=== PATIENT | male | born 1955 | race Caucasian/White ===

== ENCOUNTER 2020-04-11 12:22 | Emergency (ER) | payer MEDICAID ==
[~2020-04-11] VITALS: Ht 177.8 cm; Wt 89.8 kg
--- NOTE | 2020-04-11 12:22 | NUR ---
PT BIBRA 61 OUTSIDE APARTMENT COMPLEX WANDERING AND CONFUSED. 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 WILL CONTINUE TO MONITOR.
--- NOTE | 2020-04-11 12:26 | NUR ---
PT SEEN AND EXAMINED BY .
--- NOTE | 2020-04-11 12:30 | NUR ---
URINE SPECIMEN COLLECTED AND SENT TO LAB.
--- NOTE | 2020-04-11 12:35 | NUR ---
ER PHLEB AT BEDSIDE FOR BLOOD DRAW.
[2020-04-11 12:46] LABS: BASOPHILS # (AUTO) 0.1 /CMM (0.0-0.2); BASOPHILS % (AUTO) 0.7 % (0.0-2.0); EOSINOPHILS % (AUTO) 0.4 % (0.0-6.0); HEMATOCRIT 45 % (39-51); LYMPHOCYTES # (AUTO) 1.6 /CMM (0.8-4.8); LYMPHOCYTES % (AUTO) 19.5 % (20.0-44.0); MEAN CORPUSCULAR HGB CONC 34 g/dl (31.0-36.0); MEAN CORPUSCULAR VOLUME 89 fL (80-96); MONOCYTES # (AUTO) 0.7 /CMM (0.1-1.30); MONOCYTES % (AUTO) 8.5 % (2.0-12.0); NEUTROPHILS # (AUTO) 5.7 /CMM (1.8-8.9); NEUTROPHILS % (AUTO) 70.9 % (43.0-81.0); PLATELET COUNT (AUTO) 234 /CMM (150-450); RED BLOOD CELL COUNT(AUTO) 5.01 MIL/uL (4.5-6.0); WHITE BLOOD COUNT (AUTO) 8.1 K/uL (4.3-11.0)
[2020-04-11 12:48] LABS: APPEARANCE,URINE Clear (CLEAR); BILIRUBIN,URINE Negative (NEGATIVE); BLOOD, URINE Trace-intact Ery/uL (NEGATIVE); COLOR,URINE Yellow (YELLOW); KETONES,URINE Trace (NEGATIVE); LEUKOCYTE ESTERASE ,URINE Negative (NEGATIVE); NITRITE, URINE Negative (NEGATIVE); PROTEIN,URINE 30 mg/dl (NEGATIVE); UGLUCOSE Negative (NEGATIVE); UROBILINOGEN,URINE 0.2 EU/dL (0.2)
[2020-04-11 12:49] LABS: BACTERIA,URINE Rare /HPF (None Seen); RBC,URINE 0-2 /HPF (0-2); SQUAMOUS EPITHELIAL CELL,UR Few /HPF (None Seen); WBC,URINE 0-2 /HPF (0-3)
[2020-04-11 12:53] LABS: CALCIUM, SERUM 9.6 mg/dL (8.5-10.1); CARBON DIOXIDE 26 mmol/L (21-32); CHLORIDE 98 mmol/L (98-107); GLUCOSE 98 mg/dL (74-106); POTASSIUM 3.9 mmol/L (3.5-5.1); SODIUM SERUM 135 mmol/L (136-145); UREA NITROGEN, BLOOD 18 mg/dL (7-18)
[2020-04-11 12:59] LABS: ACETAMINOPHEN 0 ug/ml (10-30); ALANINE AMINOTRANSFERASE 21 U/L (12-78); ALBUMIN 4.4 g/dL (3.4-5.0); ALCOHOL, BLOOD < 3 mg/dL (0-0); ALKALINE PHOSPHATASE 111 U/L (46-116); ASPARTATE AMINOTRANSFERASE 28 U/L (15-37); BILIRUBIN,DIRECT 0.2 mg/dL (0.0-0.2); BILIRUBIN,TOTAL 0.9 mg/dL (0.2-1.0); SALICYLATE 0.3 mg/dL (2.8-20.0); TOTAL PROTEIN, SERUM 7.6 g/dL (6.4-8.2)
[2020-04-11 13:23] LABS: SERUM AMMONIA 19 umol/L (11-32)
[2020-04-11 13:35] LABS: THYROID STIMULATING HORMONE 1.391 uIU/mL (0.358-3.74)
--- NOTE | 2020-04-11 13:50 | NUR ---
Patient discharged to home in stable condition. Written and verbal after care instructions given. Patient verbalizes understanding of instruction.
[2020-04-11 13:51] VITALS: BP 131/77
== END 2020-04-11 13:52 | disposition home or self-care (01) ==
LOC: ER 12:24
DX: T43.621A Poisoning by amphetamines, accidental (unintentional), initial encounter (principal); T40.1X1A Poisoning by heroin, accidental (unintentional), initial encounter; I10 Essential (primary) hypertension; J44.9 Chronic obstructive pulmonary disease, unspecified; F32.9 Major depressive disorder, single episode, unspecified; G47.00 Insomnia, unspecified; Y92.89 Other specified places as the place of occurrence of the external cause
CPT/HCPCS: 36415; 70450; 71045; 80048; 80076; 80305; 80307; 80329; 81001; 82140; 82962; 84443; 85025; 93005; 99285; G0480; 81000-TC

== ENCOUNTER 2022-07-07 20:27 | Emergency (ER) | payer OTHER ==
[~2022-07-07] VITALS: Ht 182.9 cm; Wt 86.6 kg
--- NOTE | 2022-07-07 20:29 | NUR ---
PT BIBRA FOR C/O ALOC FOUND IN A [place] PARKING LOT. PER EMS REPORT, PT WAS AWAKE UPON THEIR ARRIVAL AND BECAME UNRESPONSIVE EN ROUTE AXO x0 UNRESPONSIVE TO VERBAL OR PAINFUL STIMULI. PT HAS HX OF BRAIN CANCER W METS TAKES SABOXONE AND WAS FOUND ON HIS PERSON ON EMS ARRIVAL. PT COOL PALE AND DIAPHORETIC EKG READS SINUS CHRIS AND SBP IN 70S IN 500NS GIVEN EN ROUTE. PT PLACED IN ER BED 9 CHANGED TO GOWN AND PLACED ON GALLERY MANAGER AND PULSE OX. O2 SAT 80S ON RA PLACED ON NRB 15LPM. WAS AT BEDSIDE FOR EVAL.
--- NOTE | 2022-07-07 20:30 | NUR ---
IV CANNULA G20 INSERTED ON LEFT AC. BLOOD DRAWN AND SENT TO LAB.
[2022-07-07] MEDS ORDERED: NALOXONE PREFILLED SYRINGE 2 MG/2 ML SYRINGE ONE (20:33)
--- NOTE | 2022-07-07 20:40 | NUR ---
PATIENT IS UNTESTED FOR SWALLOWING EVAL. PATIENT IS UNRESPONSIVE TO VERBAL AND NON VERBAL STIMULI. AAOX1. CAME WITH IV LINE ON RIGHT AC G18. WITH NON REBREATHING BAG AT 15LPM SATS AT 96%
--- NOTE | 2022-07-07 20:42 | NUR ---
URINE SPECIMEN SENT TO LAB
--- NOTE | 2022-07-07 20:50 | NUR ---
PT RESPONDED TO NARCAN WELL CURRENTLY AWAKE AND ALERT X4. OXYGEN TITRATED TO 4LPM NC AND TOLERATING WELL.
[2022-07-07] MEDS ORDERED: IV NS 0.9% 1,000 ML BAG IV ONE (21:00)
[2022-07-07] MEDS ORDERED: NALOXONE HCL 0.4 MG/ML AMPUL IV ONE (21:00)
--- NOTE | 2022-07-07 21:07 | NUR ---
PT PASSED SWALLOW RE-EVALUATION
[2022-07-07 21:10] LABS: BASOPHILS % (AUTO) 0.6 % (0.0-2.0); EOSINOPHILS % (AUTO) 1.7 % (0.0-6.0); HEMATOCRIT 39 % (39-51); HEMOGLOBIN 13.1 g/dL (13.5-17.5); LYMPHOCYTES # (AUTO) 2.1 K/uL (0.8-4.8); MEAN CORPUSCULAR HGB CONC 34 g/dl (31.0-36.0); MEAN CORPUSCULAR VOLUME 86 fL (80-96); MONOCYTES # (AUTO) 0.6 K/uL (0.1-1.30); MONOCYTES % (AUTO) 7.6 % (2.0-12.0); NEUTROPHILS # (AUTO) 4.9 K/uL (1.8-8.9); NEUTROPHILS % (AUTO) 63.1 % (43.0-81.0); PLATELET COUNT (AUTO) 330 K/uL (150-450); RED BLOOD CELL COUNT(AUTO) 4.54 MIL/uL (4.5-6.0); WHITE BLOOD COUNT (AUTO) 7.8 K/uL (4.3-11.0)
[2022-07-07] MEDS ORDERED: ONDANSETRON HCL/PF 4 MG/2 ML VIAL ONE (21:15)
[2022-07-07] MEDS ORDERED: ONDANSETRON HCL/PF 4 MG/2 ML VIAL IVP ONE (21:30)
[2022-07-07 21:31] LABS: BILIRUBIN,URINE SMALL (NEGATIVE); COLOR,URINE YELLOW (YELLOW); LEUKOCYTE ESTERASE ,URINE NEGATIVE (NEGATIVE); NITRITE, URINE NEGATIVE (NEGATIVE); PROTEIN,URINE 100 mg/dl (NEGATIVE); UGLUCOSE NEGATIVE (NEGATIVE)
[2022-07-07 21:34] LABS: SERUM AMMONIA 31 umol/L (11-32)
--- NOTE | 2022-07-07 21:39 | NUR ---
PT BEING TRANSPORTED TO [facility]IA [facility]
--- NOTE | 2022-07-07 21:41 | NUR ---
PT COVID POSITIVE.MD MADE AWARE AND TRANSFERRED TO PRIVATE ROOM.
[2022-07-07] MEDS ORDERED: IBUPROFEN 600 MG TABLET ONE (21:51)
[2022-07-07] MEDS ORDERED: IBUPROFEN 600 MG TABLET PO ONE (22:00)
[2022-07-07 22:02] LABS: BACTERIA,URINE RARE /HPF (None Seen); MUCUS,URINE Few /LPF (None Seen); RBC,URINE 0-2 /HPF (0-2); SQUAMOUS EPITHELIAL CELL,UR 0-2 /HPF (None Seen); WBC,URINE 0-2 /HPF (0-3)
[2022-07-07 22:22] LABS: CALCIUM, SERUM 8.7 mg/dL (8.5-10.1); CARBON DIOXIDE 29 mmol/L (21-32); CHLORIDE 99 mmol/L (98-107); CREATININE 1.1 mg/dL (0.6-1.3); GLUCOSE 128 mg/dL (74-106); POTASSIUM 2.9 mmol/L (3.5-5.1); SODIUM SERUM 138 mmol/L (136-145); UREA NITROGEN, BLOOD 10 mg/dL (7-18)
[2022-07-07] MEDS ORDERED: PIPERACILLIN /TAZOBACTAM 3.375 G VIAL IV ONE (22:22)
[2022-07-07 22:28] LABS: ACETAMINOPHEN 0 ug/ml (10-30); ALANINE AMINOTRANSFERASE 18 U/L (12-78); ALBUMIN 3.4 g/dL (3.4-5.0); ALCOHOL, BLOOD < 3 mg/dL (0-0); ALKALINE PHOSPHATASE 68 U/L (46-116); ASPARTATE AMINOTRANSFERASE 24 U/L (15-37); BILIRUBIN,DIRECT 0.2 mg/dL (0.0-0.2); BILIRUBIN,TOTAL 0.5 mg/dL (0.2-1.0); TOTAL PROTEIN, SERUM 6.1 g/dL (6.4-8.2)
[2022-07-07] MEDS ORDERED: PIPERACILLIN /TAZOBACTAM 3.375 G in IV D5W 50 ML IV ONE (22:30)
[2022-07-07 23:03] LABS: THYROID STIMULATING HORMONE 1.409 uIU/mL (0.358-3.74)
--- NOTE | 2022-07-08 01:12 | NUR ---
FAXED UPDATED CLINICALS TO [facility]
--- NOTE | 2022-07-08 02:03 | NUR ---
PT ACCEPTED AT [facility] UNDER THE CARE OF DR. YOUNGER. PT IS GOING TO ER. TRANSPORT TO [facility] BY [facility]
--- NOTE | 2022-07-08 02:45 | NUR ---
REPORT GIVEN TO [facility] [place]
--- NOTE | 2022-07-08 02:49 | NUR ---
[facility] ETA per Niranjan: [id number]
--- NOTE | 2022-07-08 03:01 | NUR ---
[facility] AT BED SIDE TO SHIFT SUPERVISOR THE PT
[2022-07-08 03:04] VITALS: BP 132/80
--- NOTE | 2022-07-08 03:13 | NUR ---
PT WAS TRANSFERRED TO [facility] UNDER ACLS
--- NOTE | 2022-07-08 03:13 | NUR ---
PT PICKED UP BY [facility] for transfer to [facility]
== END 2022-07-08 03:24 | disposition short-term general hospital (02) ==
LOC: ER 20:27
DX: G93.40 Encephalopathy, unspecified (principal); J69.0 Pneumonitis due to inhalation of food and vomit; U07.1 COVID-19; J44.9 Chronic obstructive pulmonary disease, unspecified; I10 Essential (primary) hypertension; F11.10 Opioid abuse, uncomplicated; Z86.03 Personal history of neoplasm of uncertain behavior
CPT/HCPCS: 99285; 96374; 96375; 93005; 71045; 72125; 70450; 82140; 85025; 80048; 87077; 87040 ×2; 83605 ×2; 80076; 81001; 36415; 84443; 84484; 85730; 87081; 82962; 87426; 80143; 80320; 80307; J2405; J2543; J7060; J7030; J2310; C9803; G0480

== ENCOUNTER 2022-08-10 15:42 | Emergency (ER) | payer OTHER ==
[~2022-08-10] VITALS: Ht 175.3 cm; Wt 73.0 kg
--- NOTE | 2022-08-10 15:50 | NUR ---
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 TO ER BED 4.
--- NOTE | 2022-08-10 16:20 | NUR ---
DR SHELDON AT BEDSIDE W/ PT FOR EVAL
--- NOTE | 2022-08-10 17:28 | NUR ---
PHLEB AT BEDSIDE FOR BLOOD DRAW
[2022-08-10] MEDS ORDERED: IV NS 0.9% 1,000 ML IV ONE ×3 (17:30→23:00)
[2022-08-10 17:57] LABS: BASOPHILS % (AUTO) 0.1 % (0.0-2.0); HEMATOCRIT 37 % (39-51); HEMOGLOBIN 12.8 g/dL (13.5-17.5); LYMPHOCYTES # (AUTO) 0.6 K/uL (0.8-4.8); LYMPHOCYTES % (AUTO) 7.1 % (20.0-44.0); MEAN CORPUSCULAR HGB CONC 35 g/dl (31.0-36.0); MEAN CORPUSCULAR VOLUME 83 fL (80-96); MONOCYTES # (AUTO) 0.3 K/uL (0.1-1.30); NEUTROPHILS # (AUTO) 7.6 K/uL (1.8-8.9); NEUTROPHILS % (AUTO) 88.8 % (43.0-81.0); PLATELET COUNT (AUTO) 256 K/uL (150-450); RED BLOOD CELL COUNT(AUTO) 4.43 MIL/uL (4.5-6.0); WHITE BLOOD COUNT (AUTO) 8.5 K/uL (4.3-11.0)
[2022-08-10 18:08] LABS: CALCIUM, SERUM 8.6 mg/dL (8.5-10.1); CREATININE 0.8 mg/dL (0.6-1.3); POTASSIUM 5.3 mmol/L (3.5-5.1)
[2022-08-10] MEDS ORDERED: NALO4SPR BNOSTRILS (18:54)
--- NOTE | 2022-08-10 20:20 | NUR ---
PT'S SON ON PHONE, STATES PT HAS NECK AND LUNG CA AND IS IN A LOT OF PAIN AND HAS POOR PO INTAKE. PT DENIES PAIN AT THIS TIME.
[2022-08-10 20:41] LABS: CALCIUM, SERUM 8.5 mg/dL (8.5-10.1); CREATININE 0.8 mg/dL (0.6-1.3); POTASSIUM 5.6 mmol/L (3.5-5.1)
--- NOTE | 2022-08-10 22:49 | NUR ---
COVID ANTIGEN AND MRSA SWAB COLLECTED, SENT TO LAB
[2022-08-10] MEDS ORDERED: CEFTRIAXONE 1GM BAG (ER ONLY) 50 ML IV ONE (22:57)
[2022-08-10] MEDS ORDERED: DOXYCYCLINE HYCLATE (100 MG) 100 MG TABLET ONE (22:58)
[2022-08-10] MEDS ORDERED: DOXYCYCLINE HYCLATE (100 MG) 100 MG TABLET PO ONE (23:00)
[2022-08-10] MEDS ORDERED: CEFTRIAXONE 1GM BAG (ER ONLY) 1 GM/50 ML PIGGYBACK IV ONE (23:00)
[2022-08-11] MEDS ORDERED: DOXY100C2 PO (01:06)
[2022-08-11] MEDS ORDERED: AMOX-430 PO (01:06)
--- NOTE | 2022-08-11 08:52 | NUR ---
URINE SAMPLE OBTAINED SENTTO LAB
--- NOTE | 2022-08-11 08:53 | NUR ---
PROVIDED BREAKFAST AT BEDSIDE. PT ALERT ORIENTED
--- NOTE | 2022-08-11 09:32 | NUR ---
IV removed. Catheter intact and site benign. Pressure and 4x4 applied to site. No bleeding noted.
--- NOTE | 2022-08-11 09:32 | NUR ---
Patient discharged to home in stable condition. Written and verbal after care instructions given. Patient verbalizes understanding of instruction.
[2022-08-11 09:34] VITALS: BP 101/61
[2022-08-11 09:37] LABS: BILIRUBIN,URINE 1+ (NEGATIVE); COLOR,URINE ORANGE (YELLOW); LEUKOCYTE ESTERASE ,URINE NEGATIVE (NEGATIVE); NITRITE, URINE NEGATIVE (NEGATIVE); PROTEIN,URINE TRACE mg/dl (NEGATIVE); UGLUCOSE NEGATIVE (NEGATIVE); UROBILINOGEN,URINE 0.2 EU/dL (0.2)
[2022-08-11 09:55] LABS: BACTERIA,URINE Few /HPF (None Seen); RBC,URINE 0-2 /HPF (0-2)
== END 2022-08-11 10:28 | disposition home or self-care (01) ==
LOC: ER 15:44
DX: R55 Syncope and collapse (principal); I95.9 Hypotension, unspecified; E87.1 Hypo-osmolality and hyponatremia; J18.9 Pneumonia, unspecified organism; E86.0 Dehydration; Z20.822 Contact with and (suspected) exposure to COVID-19; E87.5 Hyperkalemia; E87.8 Other disorders of electrolyte and fluid balance, not elsewhere classified; J44.9 Chronic obstructive pulmonary disease, unspecified; I10 Essential (primary) hypertension; Z86.19 Personal history of other infectious and parasitic diseases; F11.10 Opioid abuse, uncomplicated
CPT/HCPCS: 99285; 96365; 71045; 96361; 87426; 93005; 85025; 80048 ×2; 81001; 36415; 87081; J7030 ×3; J0696; C9803